=== PATIENT | male | born 1930 | race African-American/Black ===

== ENCOUNTER 2016-11-14 17:49 | Inpatient (IN) | payer MEDICARE, OTHER ==
[~2016-11-14 17:49] MED LIST: ADULT ASPIRIN81 MG PO; ANTIFUNGAL30 G3 TP; ASPIR 8181 MG; ASPIRIN EC81 MG PO; CATAPRES0.2 M1 PO; CATAPRES0.2 MG PO; CEPHALEXIN500 M PO; CIPRO500 MG; CLONIDINE; CLONIDINE HCL0.3 MG; CLONIDINE PO; CODEINE; COMBIVENT INH14.7 GM IH; FUROSEMIDE; FUROSEMIDE20 M1 PO; FUROSEMIDE40 MG; GLIPIZIDE10 MG; GLIPIZIDE10 MG PO; GLUCOPHAGE500 MG; GLUCOPHAGE500 MG PO; GLUCOPHAGE850 MG PO; GLYBURIDE; GUAIFENESIN; INSULIN; LANTUS SOL100 UNIT/1 SC; LASIX40 MG PO; LISINOPRIL; LOPRESSOR25 MG/TA1 PO; LOPRESSOR50 MG PO; METFORMIN; METFORMIN HCL750 M1 PO; METOPROLOL; METOPROLOL TART50 MG; NORVASC10 M2 PO; NORVASC10 MG; NORVASC10 MG PO; NORVASC5 MG PO; NOVOLIN N100 U/ML; NOVOLIN N100 U/ML SQ; TOPROL XL50 M1 PO; VITAMIN B12 PO; VITAMIN B6 PO; VITAMIN C PO; VITAMIN D PO; VITAMIN E PO; ZOCOR40 M1 PO; ZOCOR40 MG PO; ZOCOR80 MG; ZOFRAN4 MG PO
[2016-11-14 18:38] LABS: PROTHROMBIN TIME 11.6 SECONDS (9.0-13.6)
[2016-11-14 19:22] LABS: CARBON DIOXIDE-VENOUS 18 mmol/L (21-33); CREATININE 1.31 mg/dl (0.67-1.17); GLUCOSE 164 mg/dl (65-120); SODIUM 138 mmol/L (135-146); eGFR VALUE FOR BLACK 58 mL/Min
[2016-11-14 19:47] LABS: ALB/GLOB RATIO 0.8 (0.8-2.0); ALKALINE PHOSPHATASE 110 U/L (33-138); ALT/SGPT 31 U/L (12-78); BILIRUBIN,TOTAL 0.8 mg/dl (0.0-1.5); BLOOD UREA NITROGEN 26 mg/dl (6-24); CALCIUM 8.6 mg/dl (8.5-10.5); CHLORIDE 104 mmol/l (96-110)
[2016-11-14 19:48] LABS: ANION GAP 21 mmol/L (0-20); AST/SGOT 96 U/L (10-40); TSH-THYROID STIMULATING HORM. 2.07 uIU/ml (0.40-3.80)
[2016-11-14 20:22] LABS: BASO % 0.1 % (0-2); HGB-HEMOGLOBIN 12.1 gm/dl (13.5-17.0); IMMATURE GRANULOCYTES ABSOLUTE 0.06 tho/cmm (0-0.03); IMMATURE GRANULOCYTES PERCENT 0.4 % (0-0.3); LYMPH % 5.3 % (20-45); LYMPH ABSOLUTE COUNT 0.9 tho/cmm (0.8-4.5); MCHC MEAN CORPUSCULAR HGB CONC 32.7 % (32.0-36.0); MCV (MEAN CELL VOLUME) 100.8 fl (82.0-96.0); MEAN PLATELET VOLUME 9.9 cmc (9.4-12.4); MONOCYTE ABSOLUTE COUNT 0.8 tho/cmm (0.0-1.2); NEUTROPHIL ABSOLUTE COUNT 14.6 tho/cmm (1.6-8.0); NEUTROPHIL-AUTOMATED 14.6 tho/cmm (1.6-8.0); NEUTROPHILS % 89.2 % (40-80); PLATELET COUNT 346 tho/cmm (150-450); RED BLOOD COUNT 3.67 mil/cmm (4.40-5.70); RED CELL DISTRIBUTION WIDTH 12.9 % (12.4-16.4); WHITE BLOOD COUNT 16.4 tho/cmm (4.0-10.0)
[2016-11-14 20:29] LABS: PROCALCITONIN 0.22 ng/ml (0.05-0.09)
[2016-11-14 21:02] LABS: URINE APPEARANCE CLEAR; URINE BILIRUBIN NEGATIVE (NEG); URINE BLOOD SMALL (NEG); URINE COLOR YELLOW; URINE GLUCOSE (UA) NEGATIVE (NEG); URINE KETONE LARGE (NEG); URINE LEUKOCYTE ESTERASE NEGATIVE (NEG); URINE NITRITE NEGATIVE (NEG); URINE PROTEIN MODERATE (NEG)
[2016-11-14 21:07] LABS: URINE AMORPHOUS 1+; URINE MUCUS 1+
[2016-11-14 21:08] LABS: URINE EPITHELIAL CELLS RARE /[HPF] (0-10); URINE WBC 0-3 /[HPF] (0-5)
[2016-11-15 05:08] LABS: BASO % 0.1 % (0-2); HCT-HEMATOCRIT 35.9 % (36.0-53.5); IMMATURE GRANULOCYTES ABSOLUTE 0.08 tho/cmm (0-0.03); IMMATURE GRANULOCYTES PERCENT 0.6 % (0-0.3); LYMPH % 7.9 % (20-45); LYMPH ABSOLUTE COUNT 1.1 tho/cmm (0.8-4.5); MCH (MEAN CORPUSCULAR HGB) 33.6 pg (28.0-32.0); MCHC MEAN CORPUSCULAR HGB CONC 33.4 % (32.0-36.0); MCV (MEAN CELL VOLUME) 100.6 fl (82.0-96.0); MEAN PLATELET VOLUME 10.3 cmc (9.4-12.4); MONO % 9.1 % (0-12); MONOCYTE ABSOLUTE COUNT 1.3 tho/cmm (0.0-1.2); NEUTROPHIL ABSOLUTE COUNT 11.4 tho/cmm (1.6-8.0); NEUTROPHIL-AUTOMATED 11.4 tho/cmm (1.6-8.0); NEUTROPHILS % 82.3 % (40-80); PLATELET COUNT 302 tho/cmm (150-450); RED BLOOD COUNT 3.57 mil/cmm (4.40-5.70); RED CELL DISTRIBUTION WIDTH 12.9 % (12.4-16.4); WHITE BLOOD COUNT 13.9 tho/cmm (4.0-10.0)
[2016-11-15 05:22] LABS: ALB/GLOB RATIO 0.6 (0.8-2.0); ALBUMIN 2.7 g/dl (3.5-5.0); ALKALINE PHOSPHATASE 101 U/L (33-138); ALT/SGPT 32 U/L (12-78); ANION GAP 22 mmol/L (0-20); AST/SGOT 85 U/L (10-40); BILIRUBIN,TOTAL 0.5 mg/dl (0.0-1.5); BLOOD UREA NITROGEN 28 mg/dl (6-24); CALCIUM 8.3 mg/dl (8.5-10.5); CHLORIDE 103 mmol/l (96-110); CREATININE 1.26 mg/dl (0.60-1.30); POTASSIUM 4.6 mmol/L (3.7-5.1); SODIUM 140 mmol/L (135-145); eGFR VALUE FOR BLACK 60 mL/Min
[2016-11-15 05:31] LABS: CARBON DIOXIDE-VENOUS 21 mmol/L (21-33)
[2016-11-15 05:38] LABS: GLUCOSE 304 mg/dL (70-110)
[2016-11-16 13:04] LABS: ANION GAP 11 mmol/L (0-20); BLOOD UREA NITROGEN 16 mg/dl (6-24); CALCIUM 8.4 mg/dl (8.5-10.5); CARBON DIOXIDE-VENOUS 30 mmol/L (22-32); CHLORIDE 106 mmol/l (96-110); CREATININE 1.08 mg/dl (0.60-1.30); GLUCOSE 233 mg/dL (70-110); POTASSIUM 4.2 mmol/L (3.7-5.1); SODIUM 143 mmol/L (135-145); eGFR VALUE FOR BLACK 73 mL/Min
[2016-11-17 13:43] LABS: BASO % 0.5 % (0-2); EOSINOPHIL ABSOLUTE COUNT 0.1 tho/cmm (0.0-0.7); HCT-HEMATOCRIT 32.7 % (36.0-53.5); HGB-HEMOGLOBIN 10.5 gm/dl (13.5-17.0); IMMATURE GRANULOCYTES ABSOLUTE 0.01 tho/cmm (0-0.03); IMMATURE GRANULOCYTES PERCENT 0.2 % (0-0.3); LYMPH % 19.9 % (20-45); LYMPH ABSOLUTE COUNT 1.1 tho/cmm (0.8-4.5); MCH (MEAN CORPUSCULAR HGB) 32.9 pg (28.0-32.0); MCHC MEAN CORPUSCULAR HGB CONC 32.1 % (32.0-36.0); MCV (MEAN CELL VOLUME) 102.5 fl (82.0-96.0); MEAN PLATELET VOLUME 10.2 cmc (9.4-12.4); MONOCYTE ABSOLUTE COUNT 0.3 tho/cmm (0.0-1.2); NEUTROPHIL ABSOLUTE COUNT 3.9 tho/cmm (1.6-8.0); NEUTROPHIL-AUTOMATED 3.9 tho/cmm (1.6-8.0); NEUTROPHILS % 71.4 % (40-80); PLATELET COUNT 222 tho/cmm (150-450); RED BLOOD COUNT 3.19 mil/cmm (4.40-5.70); RED CELL DISTRIBUTION WIDTH 12.2 % (12.4-16.4)
[2016-11-17 13:51] LABS: ANION GAP 14 mmol/L (0-20); BLOOD UREA NITROGEN 14 mg/dl (6-24); CALCIUM 8.3 mg/dl (8.5-10.5); CARBON DIOXIDE-VENOUS 30 mmol/L (22-32); CHLORIDE 104 mmol/l (96-110); CREATININE 0.97 mg/dl (0.60-1.30); GLUCOSE 279 mg/dL (70-110); POTASSIUM 4.5 mmol/L (3.7-5.1); SODIUM 143 mmol/L (135-145); eGFR VALUE FOR BLACK 83 mL/Min
[2016-11-17 14:06] LABS: WHITE BLOOD COUNT 5.5 tho/cmm (4.0-10.0)
[2017-03-26] MEDS ORDERED: CLARITIN10 M6 PO (10:27)
[2017-04-16] MEDS ORDERED: COZAAR25 M1 PO (09:47)
[2017-04-16] MEDS ORDERED: LASIX20 M1 PO (09:49)
[2017-04-16] MEDS ORDERED: VITAMIN B12 PO (09:51)
== END 2016-11-19 14:00 | DRG 565 ==
LOC: EDMED 17:49 → EMR2 23:30 → 5WE 11-15 01:23
PROVIDERS: Family Medicine; Hospitalist; Internal Medicine; ADMIT Hospitalist
DX: T79.6XXA Traumatic ischemia of muscle, initial encounter (principal); N17.9 Acute kidney failure, unspecified; L89.159 Pressure ulcer of sacral region, unspecified stage; E44.0 Moderate protein-calorie malnutrition; I13.0 Hypertensive heart and chronic kidney disease with heart failure and stage 1 through stage 4 chronic kidney disease, or unspecified chronic kidney disease; E11.9 Type 2 diabetes mellitus without complications; I50.30 Unspecified diastolic (congestive) heart failure; B35.1 Tinea unguium; Z51.5 Encounter for palliative care; R29.6 Repeated falls; R53.81 Other malaise; M54.5 Low back pain; R62.7 Adult failure to thrive; E86.0 Dehydration; N18.9 Chronic kidney disease, unspecified; E78.5 Hyperlipidemia, unspecified; K59.00 Constipation, unspecified; G89.29 Other chronic pain; W19.XXXA Unspecified fall, initial encounter; Z79.4 Long term (current) use of insulin; Z66 Do not resuscitate; Z79.82 Long term (current) use of aspirin
CPT/HCPCS: J0696; J1650; J1815; J7030

== ENCOUNTER 2016-12-18 08:46 | Inpatient (IN) | payer MEDICARE, OTHER ==
[2016-12-18] MEDS ORDERED: CERTAVITE-ANTI1 EACH PO (09:52)
[2016-12-18] MEDS ORDERED: LANTUS100 UNITS/ SC (09:53)
[2016-12-18] MEDS ORDERED: SENNA PLUS TAB1 EAC1 PO (09:54)
[2016-12-18] MEDS ORDERED: TYLENOL ARTHRI650 M1 PO (09:54)
[2016-12-18] MEDS ORDERED: BOOST HIGH PRO237 ML PO (09:55)
[2016-12-18 13:08] LABS: BASO % 0.5 % (0-2); EOS % 2.1 % (0-7); EOSINOPHIL ABSOLUTE COUNT 0.1 tho/cmm (0.0-0.7); HGB-HEMOGLOBIN 12.4 gm/dl (13.5-17.0); IMMATURE GRANULOCYTES ABSOLUTE 0.03 tho/cmm (0-0.03); IMMATURE GRANULOCYTES PERCENT 0.5 % (0-0.3); LYMPH % 25.6 % (20-45); LYMPH ABSOLUTE COUNT 1.5 tho/cmm (0.8-4.5); MCH (MEAN CORPUSCULAR HGB) 32.9 pg (28.0-32.0); MCHC MEAN CORPUSCULAR HGB CONC 32.6 % (32.0-36.0); MCV (MEAN CELL VOLUME) 100.8 fl (82.0-96.0); MEAN PLATELET VOLUME 10.3 cmc (9.4-12.4); MONOCYTE ABSOLUTE COUNT 0.4 tho/cmm (0.0-1.2); NEUTROPHIL ABSOLUTE COUNT 3.7 tho/cmm (1.6-8.0); NEUTROPHIL-AUTOMATED 3.7 tho/cmm (1.6-8.0); NEUTROPHILS % 64.3 % (40-80); RED BLOOD COUNT 3.77 mil/cmm (4.40-5.70); RED CELL DISTRIBUTION WIDTH 12.6 % (12.4-16.4); WHITE BLOOD COUNT 5.7 tho/cmm (4.0-10.0)
[2016-12-18 13:14] LABS: INR 0.8 INR (0.9-1.1); PROTHROMBIN TIME 9.1 SECONDS (9.0-13.6)
[2016-12-18 13:26] LABS: ALBUMIN 3.3 g/dl (3.5-5.0); ANION GAP 11 mmol/L (0-20); BLOOD UREA NITROGEN 13 mg/dl (6-24); CALCIUM 9.1 mg/dl (8.5-10.5); CARBON DIOXIDE-VENOUS 30 mmol/L (22-32); CHLORIDE 106 mmol/l (96-110); CREATININE 0.73 mg/dl (0.60-1.30); GLUCOSE 91 mg/dL (70-110); POTASSIUM 4.2 mmol/L (3.7-5.1); PREALBUMIN 29.3 mg/dl (20.0-40.0); SODIUM 143 mmol/L (135-145); eGFR VALUE FOR BLACK >90 mL/Min
[2016-12-20 06:51] LABS: ANION GAP 12 mmol/L (0-20); BLOOD UREA NITROGEN 15 mg/dl (6-24); CALCIUM 8.5 mg/dl (8.5-10.5); CARBON DIOXIDE-VENOUS 29 mmol/L (22-32); CHLORIDE 107 mmol/l (96-110); CREATININE 0.85 mg/dl (0.60-1.30); GLUCOSE 128 mg/dL (70-110); SODIUM 143 mmol/L (135-145); eGFR VALUE FOR BLACK >90 mL/Min
[2016-12-20 06:52] LABS: POTASSIUM 4.6 mmol/L (3.7-5.1)
[2016-12-20 12:06] LABS: BASO % 0.4 % (0-2); EOS % 1.1 % (0-7); EOSINOPHIL ABSOLUTE COUNT 0.1 tho/cmm (0.0-0.7); HCT-HEMATOCRIT 37.2 % (36.0-53.5); HGB-HEMOGLOBIN 12.3 gm/dl (13.5-17.0); IMMATURE GRANULOCYTES ABSOLUTE 0.01 tho/cmm (0-0.03); IMMATURE GRANULOCYTES PERCENT 0.1 % (0-0.3); LYMPH % 19.3 % (20-45); LYMPH ABSOLUTE COUNT 1.5 tho/cmm (0.8-4.5); MCHC MEAN CORPUSCULAR HGB CONC 33.1 % (32.0-36.0); MCV (MEAN CELL VOLUME) 99.7 fl (82.0-96.0); MEAN PLATELET VOLUME 10.2 cmc (9.4-12.4); MONO % 9.3 % (0-12); MONOCYTE ABSOLUTE COUNT 0.7 tho/cmm (0.0-1.2); NEUTROPHIL ABSOLUTE COUNT 5.5 tho/cmm (1.6-8.0); NEUTROPHIL-AUTOMATED 5.5 tho/cmm (1.6-8.0); NEUTROPHILS % 69.8 % (40-80); RED BLOOD COUNT 3.73 mil/cmm (4.40-5.70); RED CELL DISTRIBUTION WIDTH 12.4 % (12.4-16.4); WHITE BLOOD COUNT 7.9 tho/cmm (4.0-10.0)
[2016-12-20 12:20] LABS: ANION GAP 13 mmol/L (0-20); BLOOD UREA NITROGEN 12 mg/dl (6-24); CALCIUM 8.3 mg/dl (8.5-10.5); CARBON DIOXIDE-VENOUS 28 mmol/L (22-32); CHLORIDE 106 mmol/l (96-110); GLUCOSE 160 mg/dL (70-110); SODIUM 142 mmol/L (135-145); eGFR VALUE FOR BLACK >90 mL/Min
[2016-12-20 12:26] LABS: POTASSIUM 5.1 mmol/L (3.7-5.1)
[2016-12-20 12:53] LABS: PLATELET COUNT 199 tho/cmm (150-450)
[2016-12-20] MEDS ORDERED: HYDROCODON-ACE1 EA16 PO (15:22)
[2016-12-20] MEDS ORDERED: KEFLEX500 M4 PO (15:22)
[2017-03-26] MEDS ORDERED: CLARITIN10 M6 PO (10:27)
[2017-04-16] MEDS ORDERED: COZAAR25 M1 PO (09:47)
[2017-04-16] MEDS ORDERED: LASIX20 M1 PO (09:49)
[2017-04-16] MEDS ORDERED: VITAMIN B12 PO (09:51)
== END 2016-12-20 15:11 | DRG 579 ==
LOC: WCC 08:46 → BURN 10:47 → ORW 12-20 10:04 → BURN 12-20 10:50
PROVIDERS: Family Medicine; Internal Medicine; Surgery; ADMIT Surgery
PROC: 0KBP0ZZ Excision of Left Hip Muscle, Open Approach (ICD-10-PCS; principal; 2016-12-20)
PROC: 0KBN0ZZ Excision of Right Hip Muscle, Open Approach (ICD-10-PCS; 2016-12-20)
DX: L89.154 Pressure ulcer of sacral region, stage 4 (principal); E46 Unspecified protein-calorie malnutrition; E11.9 Type 2 diabetes mellitus without complications; I96 Gangrene, not elsewhere classified; I65.22 Occlusion and stenosis of left carotid artery; L03.317 Cellulitis of buttock; I10 Essential (primary) hypertension; Z68.1 Body mass index [BMI] 19.9 or less, adult; D64.9 Anemia, unspecified; Z91.81 History of falling; Z79.82 Long term (current) use of aspirin; R60.9 Edema, unspecified; E78.5 Hyperlipidemia, unspecified; Z99.3 Dependence on wheelchair; Z79.4 Long term (current) use of insulin; G89.29 Other chronic pain; R32 Unspecified urinary incontinence; R01.1 Cardiac murmur, unspecified
CPT/HCPCS: G0463; G8978-GP-CK; G8979-GP-CK; G8980-GP-CK; J1335; J1815

== ENCOUNTER 2017-01-08 09:12 | Inpatient (IN) | payer MEDICARE, OTHER ==
[~2017-01-08 09:12] MED LIST changes: +BOOST HIGH PRO237 ML PO; +CERTAVITE-ANTI1 EACH PO; +HYDROCODON-ACE1 EA16 PO; +KEFLEX500 M4 PO; +LANTUS100 UNITS/ SC; +SENNA PLUS TAB1 EAC1 PO; +TYLENOL ARTHRI650 M1 PO
[2017-01-08] MEDS ORDERED: ALDACTONE25 M1 PO (10:20)
[2017-01-08 17:58] LABS: ANION GAP 15 mmol/L (0-20); BLOOD UREA NITROGEN 13 mg/dl (6-24); CALCIUM 8.7 mg/dl (8.5-10.5); CARBON DIOXIDE-VENOUS 26 mmol/L (22-32); CHLORIDE 103 mmol/l (96-110); CREATININE 0.94 mg/dl (0.60-1.30); GLUCOSE 166 mg/dL (70-110); POTASSIUM 4.6 mmol/L (3.7-5.1); SODIUM 139 mmol/L (135-145); eGFR VALUE FOR BLACK 85 mL/Min
[2017-01-08 18:16] LABS: BASO % 0.2 % (0-2); EOS % 1.9 % (0-7); EOSINOPHIL ABSOLUTE COUNT 0.2 tho/cmm (0.0-0.7); HCT-HEMATOCRIT 32.9 % (36.0-53.5); HGB-HEMOGLOBIN 10.9 gm/dl (13.5-17.0); IMMATURE GRANULOCYTES ABSOLUTE 0.05 tho/cmm (0-0.03); IMMATURE GRANULOCYTES PERCENT 0.6 % (0-0.3); LYMPH % 26.2 % (20-45); LYMPH ABSOLUTE COUNT 2.4 tho/cmm (0.8-4.5); MCH (MEAN CORPUSCULAR HGB) 31.9 pg (28.0-32.0); MCHC MEAN CORPUSCULAR HGB CONC 33.1 % (32.0-36.0); MCV (MEAN CELL VOLUME) 96.2 fl (82.0-96.0); MEAN PLATELET VOLUME 8.8 cmc (9.4-12.4); MONO % 6.8 % (0-12); MONOCYTE ABSOLUTE COUNT 0.6 tho/cmm (0.0-1.2); NEUTROPHIL ABSOLUTE COUNT 5.8 tho/cmm (1.6-8.0); NEUTROPHIL-AUTOMATED 5.8 tho/cmm (1.6-8.0); NEUTROPHILS % 64.3 % (40-80); PLATELET COUNT 375 tho/cmm (150-450); RED BLOOD COUNT 3.42 mil/cmm (4.40-5.70); RED CELL DISTRIBUTION WIDTH 12.1 % (12.4-16.4)
[2017-01-09] MEDS ORDERED: BISCOLAX10 MG PR (10:56)
[2017-01-09] MEDS ORDERED: CITRATE OF MAG300 M1 PO (10:56)
[2017-01-09] MEDS ORDERED: ENEMA133 M4 PR (10:58)
[2017-01-09] MEDS ORDERED: MILK OF MAGNESIA PO (10:58)
[2017-01-09] MEDS ORDERED: CLARITIN10 M6 PO (10:59)
[2017-03-26] MEDS ORDERED: CLARITIN10 M6 PO (10:27)
[2017-04-16] MEDS ORDERED: COZAAR25 M1 PO (09:47)
[2017-04-16] MEDS ORDERED: LASIX20 M1 PO (09:49)
[2017-04-16] MEDS ORDERED: VITAMIN B12 PO (09:51)
== END 2017-01-10 14:55 | DRG 570 ==
LOC: WCC 09:12 → BURN 10:53
PROVIDERS: Registered Nurse; ADMIT Surgery
PROC: 0JB90ZZ Excision of Buttock Subcutaneous Tissue and Fascia, Open Approach (ICD-10-PCS; principal; 2017-01-08)
PROC: 02HV33Z Insertion of Infusion Device into Superior Vena Cava, Percutaneous Approach (ICD-10-PCS; 2017-01-09)
DX: L89.154 Pressure ulcer of sacral region, stage 4 (principal); E44.0 Moderate protein-calorie malnutrition; I65.29 Occlusion and stenosis of unspecified carotid artery; I11.0 Hypertensive heart disease with heart failure; I50.32 Chronic diastolic (congestive) heart failure; Z68.1 Body mass index [BMI] 19.9 or less, adult; G89.29 Other chronic pain; M54.5 Low back pain; E78.5 Hyperlipidemia, unspecified; Z91.81 History of falling; Z66 Do not resuscitate; E11.9 Type 2 diabetes mellitus without complications; Z79.4 Long term (current) use of insulin; Z79.84 Long term (current) use of oral hypoglycemic drugs; Z79.01 Long term (current) use of anticoagulants; Z79.82 Long term (current) use of aspirin; Z88.8 Allergy status to other drugs, medicaments and biological substances; R33.9 Retention of urine, unspecified
CPT/HCPCS: C1751; J1650; J1815; J2543; J3370; J7999